=== PATIENT | female | born 1975 | race African-American/Black ===

== ENCOUNTER → 2017-06-25 16:37 | Outpatient (CLI) | payer BC ==
[2013-03-16 08:10] VITALS: BMI 22.9
[~2017-06-25 16:37] MED LIST: EZFE 200200 MG PO; FERROUS SULFAT325 MG PO; MOTRIN600 MG PO; PERCOCET 5/3251 TA1 PO; PRENATAL COMPLE1 TAB PO
== END | disposition home or self-care (01) ==
LOC: D.MAMMO 14:00
DX: Z12.31 Encounter for screening mammogram for malignant neoplasm of breast (principal)

== ENCOUNTER 2019-12-01 16:57 | Outpatient (CLI) | payer OTHER ==
[2013-03-16 08:10] VITALS: BMI 22.9
== END 2019-12-01 23:59 | disposition home or self-care (01) ==
LOC: D.MAMMO 16:57
PROVIDERS: ATTEND Obstetrics & Gynecology
DX: Z12.31 Encounter for screening mammogram for malignant neoplasm of breast (principal)